=== PATIENT | male | born 1975 | race Hispanic/Latino ===

== ENCOUNTER 2018-01-14 13:04 | Day surgery (SDC) | payer SELFPAY ==
[2018-01-14] MEDS ORDERED: Adacel (T-DAP) 0.5 ML VIAL ONE (13:14)
[2018-01-14] MEDS ORDERED: CEFAZOLIN/Water 2 GM/20 ML SYRINGE ONE (13:49)
[2018-01-14] MEDS ORDERED: Morphine 4 MG/ML VIAL ONE ×2 (13:49→17:03)
[2018-01-14 13:52] LABS: #Eosinphils 0.2 thou/uL (0.0-0.7); #Lymphocytes 1.5 thou/uL (1.20-3.40); #Monocytes 0.9 thou/uL (0.11-0.59); #Neutrophils 11.6 thou/uL (1.40-6.50); %Basophils 0.3 % (0.0-1.0); %Eosinophils 1.3 % (0.0-10.0); %Lymphocytes 10.5 % (21.0-51.0); %Monocytes 6.3 % (0.0-10.0); %Neutrophils 81.7 % (42.0-75.0); Hemoglobin 16.4 g/dL (14.0-18.0); Mean Corpuscular HGB CONC 36.2 g/dL (32.0-36.0); Mean Corpuscular Hemoglobin 33.5 pg (27.0-31.0); Mean Corpuscular Volume 92.7 fL (78.0-98.0); Mean Platelet Volume 7.4 fL (7.4-10.4); Platelet Count 259 thou/uL (130-400); RBC Distribution Width 11.2 % (11.5-14.5); Red Blood Cell (RBC) Count 4.88 mill/uL (4.70-6.10); White Blood Cell (WBC) Count 14.2 thou/uL (4.8-10.8)
[2018-01-14] MEDS ORDERED: Dexamethasone 20 MG/5 ML VIAL ONE (13:55)
[2018-01-14] MEDS ORDERED: PROPOFOL 200 MG/20 ML VIAL ONE (13:55)
[2018-01-14] MEDS ORDERED: Ondansetron HCl/PF 4 MG/2 ML Vial ONE (13:55)
[2018-01-14] MEDS ORDERED: Lidocaine 1% PF 5 ML VIAL ONE (13:55)
--- NOTE | 2018-01-14 13:59 | RAD ---
THREE VIEWS OF THE LEFT HAND: DATE: 01/14/18. COMPARISON: None. HISTORY: Laceration to the left hand, trauma, pain. FINDINGS: There is bandaging material overlying the palmar aspect of the hand. No radiopaque foreign body is s een. There is no displaced fracture or evidence of dislocation seen. IMPRESSION: Bandaging material overlies the hand. No displaced fracture or dislocation seen. POS: [facility]
[2018-01-14 14:17] LABS: ALT (SGPT) 45 U/L (8-55); AST (SGOT) 24 U/L (5-34); Albumin 4.5 g/dL (3.5-5.0); Alkaline Phosphatase 93 U/L (40-150); Anion Gap 13 mmol/L (10-20); BUN (Urea Nitrogen) 9 mg/dL (8.9-20.6); Bilirubin, Total 0.9 mg/dL (0.2-1.2); Calc. Creatinine Clearance 0 mL/min (70-130); Calcium 9.2 mg/dL (7.8-10.44); Carbon Dioxide 25 mmol/L (22-29); Chloride 102 mmol/L (98-107); Estimated GFR-MDRD 89; Glucose 106 mg/dL (70-105); Potassium 3.9 mmol/L (3.5-5.1); Protein, Total 7.5 g/dL (6.0-8.3); Sodium 136 mmol/L (136-145)
--- NOTE | 2018-01-14 14:59 | HP ---
CHIEF COMPLAINT: Left hand pain. HISTORY OF PRESENT ILLNESS: Mr. Pride is a 42-year-old male who was working today. 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 He lacerated the dorsal aspect of his hand into the first webspace with the meta l edge. He is right hand dominant. His tendon was lacerated and had some bleeding; however, this wa s controlled at the site. He presented to the emergency department. X-rays were obtained, which hav e shown no fracture. Orthopedics was consulted because of the severity of the laceration. He has re ceived pain medications. PHYSICAL EXAMINATION: VITAL SIGNS: Stable. Patient is alert, sitting upright, in no apparent distress. HEENT: Normocephalic, atraumatic. RESPIRATORY: Breathing comfortably. ABDOMEN: Soft, nontender, nondistended. MUSCULOSKELETAL: The patient's left hand has a deep long laceration extending over the dorsal aspect of the first digit into the first webspace. This travels down through the fascia to the tendon leve l. There is no obvious laceration of the tendon. He is able to extend the thumb. He reports feelin g sensation in the distal aspect of the thumb, although this is somewhat paresthetic. He has 2-secon d capillary refill of the thumb. He is able to flex the thumb well. Hand is warm and well-perfused. No active arterial bleeding. PAST MEDICAL HISTORY: Denies active medical problems. PAST SURGICAL HISTORY: No previous surgeries. MEDICATIONS: No active medications. SOCIAL HISTORY: The patient drinks alcohol occasionally. No tobacco or drug use. FAMILY MEDICAL HISTORY: Noncontributory. IMAGES: X-rays of the hand demonstrate no obvious fracture or acute abnormality except for soft tiss ue defect. IMPRESSION: Left hand laceration. PLAN: At this point, the patient will need to go to the operating room for irrigation and exploratio n of his wound. We will plan for wound closure. We will treat the patient with intravenous antibiot ics. He will have a tetanus shot. He should be able to go home tonight. We will continue p.o. anti biotics. Questions have been answered. He is aware of risks and benefits. We may find tenderness o r nerve injuries at the time of surgery, these will be repaired if appropriate.
[2018-01-14] MEDS ORDERED: CEFAZOLIN/Water 2 GM/20 ML SYRINGE SLOW IVP SCH (15:00)
[2018-01-14] MEDS ORDERED: Neomycin-Polymyxin 1 ML AMP ONE (17:28)
[2018-01-14] MEDS ORDERED: Fentanyl 100 MCG/2 ML VIAL ONE (18:44)
[2018-01-14] MEDS ORDERED: Midazolam HCl 2 mg/2 ml Vial ONE (18:44)
[2018-01-14] MEDS ORDERED: HYDROmorphone 0.5 MG/0.5 ML SYRINGE ONE ×2 (19:53→20:05)
[2018-01-14] MEDS ORDERED: Bupivacaine 0.25% HCL 30 ML VIAL ONE (20:14)
[2018-01-14] MEDS ORDERED: Promethazine HCl 25 MG/ML VIAL ONE (20:47)
[2018-01-14] MEDS ORDERED: Acetaminophen/Codeine 30-300mg Tablet ONE ×2 (21:17)
--- NOTE | 2018-01-14 23:58 | OP ---
DATE OF PROCEDURE: 01/14/2018 OPERATION: Irrigation and debridement of left hand laceration with wound closure. PREOPERATIVE DIAGNOSIS: Left hand laceration. POSTOPERATIVE DIAGNOSIS: Left hand laceration. COMPLICATIONS: None. ESTIMATED BLOOD LOSS: Minimal. SURGEON: Teddy Cade M.D. ANESTHESIA: General plus local. INDICATIONS: Mr. Pride is a 42-year-old male who has lacerated his hand with sheet metal. He had a deep laceration extending down to the bone level over the dorsum of the hand and thumb. He was in dicated for exploration and wound closure. Risks have been reviewed. He has elected to proceed with the operation. DESCRIPTION OF PROCEDURE: Mr. Pride was identified in the preoperative holding area. His extremi ty was marked. He was carried to the operating room. Intravenous antibiotics were administered. A multidisciplinary timeout was performed. The left upper extremity was prepped and draped in sterile fashion. At this point, we proceeded with irrigation and debridement of the wounds. We trimmed the skin edges sharply with a knife. We debrided the underlying fascia and subcutaneous tissue sharply as well. A t this point, we again thoroughly irrigated with copious lavage. We explored down to the level of a thumb metacarpal which had a superficial injury to it, but not fracture. The tendons were intact as well as the neurovascular structures which . We performed a final irrigation. We then closed t he skin with a 3-0 nylon suture in interrupted fashion. A sterile dressing was applied. The patient was taken to the recovery room in a splint without complication.
--- NOTE | 2018-01-17 12:19 | EKG ---
Test Reason : ER INDICATION Blood Pressure : / mmHG Vent. Rate : 072 BPM Atrial Rate : 072 BPM P-R Int : 150 ms QRS Dur : 090 ms QT Int : 368 ms P-R-T Axes : 041 -06 -03 degrees QTc Int : 402 ms Normal sinus rhythm with sinus arrhythmia Inferior infarct , age undetermined Abnormal ECG Confirmed by ANNETTA STARK ([id number]), marketing editor YESICA BREEN ([id number]) on 01/17/2018 12:18:34 PM Referred By: Confirmed By:ANNETTA STARK
--- NOTE | 2018-02-17 06:46 | PQF ---
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 [ ] [ ] Dr. Teddy Cade The documentation in this patients record requires clarification to ensure coding compliance and accuracy. Check the appropriate box and include in your discharge summary/addendum. [ ] ___the laceration was approximately 5 cm in length [ ] [ ] Please check this box if this does not apply to this patient [ ] Unable to determine [ ] Other diagnosis/procedure: Review the following information and exercise your independent professional judgment in responding to the clarification. Based upon the clinical findings, risk factors, and treatment, please clarify if you are treating one of the above probable or suspected diagnoses. Physician Signature: Date Time MTDD
== END 2018-01-14 21:45 | disposition home or self-care (01) ==
LOC: ERS 13:04 → SDC 15:13 → MERGE 15:23 → SDC 15:23
PROVIDERS: ATTEND Orthopaedic Surgery
PROC: 0HQGXZZ Repair Left Hand Skin, External Approach (ICD-10-PCS; principal; 2018-01-14)
DX: S61.412A Laceration without foreign body of left hand, initial encounter (principal); W26.8XXA Contact with other sharp object(s), not elsewhere classified, initial encounter; Y99.0 Civilian activity done for income or pay
CPT/HCPCS: 80053; 85025; 90471; 90715; 93005; 96361; 96374; 96375; J1100; J1170; J2001; J2250; J2270; J2405; J2550; J2704; J3010; S0020